=== PATIENT | male | born 1980 | race Caucasian/White ===

== ENCOUNTER 2023-06-19 14:07 | Emergency (ER) | payer OTHER ==
[2023-06-19] MEDS ORDERED: Acetaminophen 500 MG TAB ONE (15:56)
== END 2023-06-19 16:10 ==
LOC: ERS 14:07
DX: S86.911A Strain of unspecified muscle(s) and tendon(s) at lower leg level, right leg, initial encounter (principal); S80.01XA Contusion of right knee, initial encounter; E03.9 Hypothyroidism, unspecified; I10 Essential (primary) hypertension; Z79.899 Other long term (current) drug therapy; W19.XXXA Unspecified fall, initial encounter